=== PATIENT | male | born 1945 | race Caucasian/White ===

== ENCOUNTER → 2018-10-19 | Outpatient (CLI) | payer MEDICARE ==
[~2018-10-19] MED LIST: AMLO1CAP2 PO; ASPI-1181 PO; ATOR40TA69 PO; FOLI1TAB15 PO; IOHEXOL 350 MG/ML 100ML INFUS..BTL IV ONE; OXYB10TA PO; TAMS0.4C32 PO; TICA90TA PO
== END | disposition home or self-care (01) ==
LOC: RAH 13:36
PROVIDERS: ATTEND Internal Medicine Cardiovascular Disease
DX: I71.2 Thoracic aortic aneurysm, without rupture (principal); J44.9 Chronic obstructive pulmonary disease, unspecified; M47.815 Spondylosis without myelopathy or radiculopathy, thoracolumbar region
CPT/HCPCS: 71260; Q9967

== ENCOUNTER → 2018-11-05 | Outpatient (CLI) | payer MEDICARE ==
[~2018-11-05] MED LIST changes: -IOHEXOL 350 MG/ML 100ML INFUS..BTL IV ONE
== END | disposition home or self-care (01) ==
LOC: SHCH 11:03
PROVIDERS: ATTEND Internal Medicine Cardiovascular Disease
DX: I25.2 Old myocardial infarction (principal)
CPT/HCPCS: 93306

== ENCOUNTER → 2019-10-21 | Outpatient (CLI) | payer MEDICARE ==
[~2019-10-21] MED LIST changes: -OXYB10TA PO; +OXYB10TA30 PO
== END | disposition home or self-care (01) ==
LOC: RAH 08:46
PROVIDERS: ATTEND Urology
DX: K57.30 Diverticulosis of large intestine without perforation or abscess without bleeding (principal); N40.0 Benign prostatic hyperplasia without lower urinary tract symptoms
CPT/HCPCS: 74176

== ENCOUNTER → 2019-12-06 | Outpatient (CLI) | payer MEDICARE ==
[~2019-12-06] MED LIST changes: +IOHEXOL-350 75 ML VIAL IV ONE
== END | disposition home or self-care (01) ==
LOC: RAH 12:35
PROVIDERS: ATTEND Internal Medicine Cardiovascular Disease
DX: I71.2 Thoracic aortic aneurysm, without rupture (principal); I51.7 Cardiomegaly
CPT/HCPCS: 71260; Q9967

== ENCOUNTER → 2021-03-08 | Outpatient (CLI) | payer MEDICARE ==
[~2021-03-08] MED LIST changes: -ASPI-1181 PO; +ASPI-1443 PO; -IOHEXOL-350 75 ML VIAL IV ONE
== END | disposition home or self-care (01) ==
LOC: SHCH 08:12
PROVIDERS: ATTEND Internal Medicine Cardiovascular Disease
DX: I51.7 Cardiomegaly (principal); I71.2 Thoracic aortic aneurysm, without rupture; E78.5 Hyperlipidemia, unspecified; R55 Syncope and collapse
CPT/HCPCS: 93306; 93356

== ENCOUNTER → 2022-10-14 | Outpatient (CLI) | payer MEDICARE ==
[2022-10-14 16:44] LABS: ALBUMIN 4.4 g/dL (3.5-5.0); CREATININE 1.1 mg/dL (0.5-1.5); POTASSIUM 4.2 mmol/L (3.5-5.1); TOTAL PROTEIN, SERUM 7.7 g/dL (6.0-8.3)
== END | disposition home or self-care (01) ==
LOC: LAB 10:18
PROVIDERS: ATTEND Internal Medicine Cardiovascular Disease
DX: I71.20 Thoracic aortic aneurysm, without rupture, unspecified (principal)
CPT/HCPCS: 36415; 80053

== ENCOUNTER → 2022-10-25 | Outpatient (CLI) | payer MEDICARE | END | disposition home or self-care (01) | LOC: RAH 09:41 | PROVIDERS: ATTEND Internal Medicine Cardiovascular Disease | DX: I71.20 Thoracic aortic aneurysm, without rupture, unspecified (principal); I71.21 Aneurysm of the ascending aorta, without rupture; J84.10 Pulmonary fibrosis, unspecified; M47.815 Spondylosis without myelopathy or radiculopathy, thoracolumbar region | CPT/HCPCS: 71275 ==

== ENCOUNTER → 2024-08-02 | Outpatient (CLI) | payer MEDICARE ==
[2024-08-02 12:24] LABS: BASOPHILS # (AUTO) 0.06 K/uL (0.00-0.20); BASOPHILS % (AUTO) 1.1 % (0.0-5.0); EOSINOPHILS # (AUTO) 0.25 K/uL (0.00-0.70); EOSINOPHILS % (AUTO) 4.6 % (0.0-8.0); HEMATOCRIT 37.3 % (42-54); IMMATURE GRANULOCYTE ABSOLUTE 0.01 K/uL (0-1); LYMPHOCYTES # (AUTO) 1.6 K/uL (1.0-4.8); LYMPHOCYTES % (AUTO) 28.7 % (21.0-51.0); MEAN CORPUSCULAR HEMOGLOBIN 30.8 pg (27.0-33.0); MEAN CORPUSCULAR HGB CONC 32.2 g/dL (32.0-36.0); MEAN CORPUSCULAR VOLUME 95.6 fL (79-99); MONOCYTES # (AUTO) 0.5 K/uL (0.1-1.0); MONOCYTES % (AUTO) 9.8 % (3.0-13.0); NEUTROPHILS % (AUTO) 55.6 % (40.0-77.0); PLATELET COUNT (AUTO) 204 K/uL (130-400); RED CELL DISTRIBUTION WIDTH 13.5 % (11.0-15.5); WHITE BLOOD COUNT (AUTO) 5.4 K/uL (4.8-10.8)
[2024-08-02 12:40] LABS: ALBUMIN 3.6 g/dL (3.5-5.0); BILIRUBIN,TOTAL 0.5 mg/dL (0.2-1.0); CREATININE 1.6 mg/dL (0.5-1.3); POTASSIUM 4.4 mmol/L (3.5-5.1); TOTAL PROTEIN, SERUM 7.1 g/dL (6.0-8.3)
== END | disposition home or self-care (01) ==
LOC: LAB 09:44
PROVIDERS: ATTEND Internal Medicine Cardiovascular Disease
DX: I10 Essential (primary) hypertension (principal); I25.2 Old myocardial infarction
CPT/HCPCS: 36415; 80053; 80061; 85025

== ENCOUNTER → 2025-01-07 | Outpatient (CLI) | payer MEDICARE ==
--- NOTE | 2025-01-07 14:30 | HMCIMG ---
US ARTERIAL UNILA LOW EXT DUPL HISTORY: Unilateral primary osteoarthritis COMPARISON: None TECHNIQUE: Left lower extremity arterial Doppler ultrasound study was performed. FINDINGS: Normal triphasic and biphasic arterial waveforms are noted in the left common femoral, deep femoral, superficial femoral, popliteal, posterior tibial and dorsalis pedal arteries. On the left, the peak systolic velocity of the common femoral artery is 74 cm/s, the proximal femoral artery is 68 cm/s, the mid femoral artery is 66 cm/s, the distal femoral artery is 58 cm/s, the proximal popliteal artery is 35 cm/s, the distal popliteal artery is 37 cm/s, the anterior tibial artery is 73 cm/s, the posterior tibial artery artery is 76 cm/s,and the dorsalis pedal artery is 64 cm/s. Lateral vessels are seen in the left posterior tibial artery. Incidental note is made of Amador's cyst measuring 5.2 x 0.9 x 4.4 cm. IMPRESSION: 1. Atherosclerotic disease. 2. Otherwise normal triphasic and biphasic arterial waveforms noted of the left lower extremity artery system. There is collateral flow in the left posterior tibial artery.
== END | disposition home or self-care (01) ==
LOC: RAH 13:31
PROVIDERS: ATTEND Orthopaedic Surgery
DX: M17.12 Unilateral primary osteoarthritis, left knee (principal); M25.562 Pain in left knee; G89.29 Other chronic pain; I70.90 Unspecified atherosclerosis
CPT/HCPCS: 93926

== ENCOUNTER → 2025-01-20 | Outpatient (CLI) | payer MEDICARE ==
[2025-01-20 10:32] LABS: IMMATURE GRANULOCYTE ABSOLUTE 0.02 K/uL (0-1); NUCLEATED RED BLOOD CELLS 0.0 % (0.0-0.19); PLATELET COUNT (AUTO) 192 K/uL (130-400); RED BLOOD CELL COUNT(AUTO) 4.07 MIL/uL (4.50-6.20); RED CELL DISTRIBUTION WIDTH 13.2 % (11.0-15.5); WHITE BLOOD COUNT (AUTO) 6.3 K/uL (4.8-10.8)
[2025-01-20 10:45] LABS: ASPARTATE AMINOTRANSFERASE 24.0 U/L (10-37); CREATININE 0.9 mg/dL (0.5-1.3); GLOMERULAR FILTR. RATE CALC 87.0 mL/min (>90); GLUCOSE,RANDOM 92.0 mg/dL (70-105); LDL DIRECT 48.0 mg/dL (0-99); SODIUM SERUM 134.0 mmol/L (136-145); TOTAL PROTEIN, SERUM 8.0 g/dL (6.0-8.3); UREA NITROGEN, BLOOD 13.0 mg/dL (7-18)
== END | disposition home or self-care (01) ==
LOC: LAB 09:36
PROVIDERS: ATTEND Internal Medicine Cardiovascular Disease
DX: I25.10 Atherosclerotic heart disease of native coronary artery without angina pectoris (principal); I25.2 Old myocardial infarction; E78.5 Hyperlipidemia, unspecified; I71.20 Thoracic aortic aneurysm, without rupture, unspecified
CPT/HCPCS: 36415; 80053; 80061; 85025

== ENCOUNTER → 2025-01-24 | Outpatient (CLI) | payer MEDICARE ==
[~2025-01-24] MED LIST changes: +IOHEXOL 350 MG/ML 100ML INFUS..BTL IV ONE
--- NOTE | 2025-01-25 05:41 | HMCIMG ---
EXAM: CTA Chest with Intravenous Contrast. CLINICAL HISTORY: THORACIC AORTIC ANEURYSM, WITHOUT RUPTURE, UNSPECIFIED. TECHNIQUE: Axial CTA images of the chest with intravenous contrast using a pulmonary embolism protocol. Multiplanar reconstructed images were created and reviewed. COMPARISON: CT thorax angiography dated 10/25/2022. FINDINGS: The dimensions of the intrathoracic aorta at various levels are as follows: Annulus: 3.5 cm Sinus Of Valsalva: 4.3 cm Sinotubular junction: 3.5 cm Ascending aorta: 4.8 cm Aortic arch: 3.6 cm Descending thoracic aorta: 2.7 cm No evidence of central or segmental pulmonary embolism is seen. No aneurysm or dissection. No significant axillary, supraclavicular, or mediastinal lymphadenopathy. 1.3 cm hypodense left thyroid nodule. 0.6 cm perifissural nodule along the right horizontal fissure (series 4, image 54). 1.5 cm perifissural nodule along the right major fissure (image 56). 0.3 cm perifissural nodule along the left major fissure (image 47). 0.5 cm solid subpleural lung nodule in the lateral basal segment of the left lower lobe (series 4, image 75). 0.2 cm subpleural left lower lobe nodule (image 81). 1.1 x 1 cm lung cyst in the medial segment of the right middle lobe (series 4, image 78). No evidence of pneumothorax. No pleural effusion. No significant pericardial effusion. No pleural effusions. No pericardial effusion. The cardiac chambers and intrathoracic vessels are well opacified. The heart size is within normal limits. Moderate to severe calcification of the coronary arteries. Mild to moderate calcific plaques in the intrathoracic aorta, including the aortic root. Limited views of the upper abdomen demonstrate a small hiatus hernia. No suspicious osseous abnormality. Moderate degenerative osseous changes. IMPRESSION: Aneurysmal dilatation of the aortic root and ascending aorta. No rupture, thrombosis or dissection. Multiple juxtapleural bilateral lung nodules, likely benign. Small hiatus hernia. Moderate to severe coronary artery calcification. Mild to moderate intrathoracic calcific plaques. 1.3 cm hypodense left thyroid nodule. No significant interval change from the prior CT angiography chest dated 10/25/2022. /[place]acy
== END | disposition home or self-care (01) ==
LOC: RAH 08:32
PROVIDERS: ATTEND Internal Medicine Cardiovascular Disease
DX: I71.21 Aneurysm of the ascending aorta, without rupture (principal); J98.4 Other disorders of lung; R91.8 Other nonspecific abnormal finding of lung field; I25.10 Atherosclerotic heart disease of native coronary artery without angina pectoris; I70.0 Atherosclerosis of aorta; E04.1 Nontoxic single thyroid nodule; M47.814 Spondylosis without myelopathy or radiculopathy, thoracic region; K44.9 Diaphragmatic hernia without obstruction or gangrene
CPT/HCPCS: 71275; Q9967

== ENCOUNTER → 2025-04-01 | Outpatient (CLI) | payer MEDICARE ==
[~2025-04-01] MED LIST changes: -IOHEXOL 350 MG/ML 100ML INFUS..BTL IV ONE
--- NOTE | 2025-04-01 12:55 | HMCIMG ---
CHEST 2VWS REASON: HYPERTENSIVE HEART DISEASE W/O HEART FAILURE COMPARISON: None FINDINGS: Two views of the chest were obtained. Lungs are clear. There is hyperaeration of lungs suggesting of chronic obstructive pulmonary disease with flattening of both hemidiaphragms Heart size is normal. There is uncoiling atherosclerotic change of thoracic aorta. There is no pulmonary vascular congestion. Mediastinum and bony thorax appear unremarkable. There is osteopenia of the bony thorax. There is osteoarthritic change of the midthoracic spine. IMPRESSION: Chronic obstructive pulmonary disease No evidence of airspace consolidation or pulmonary venous congestion
== END | disposition home or self-care (01) ==
LOC: RAH 11:10
PROVIDERS: ATTEND Family Medicine
DX: J44.9 Chronic obstructive pulmonary disease, unspecified (principal); I70.0 Atherosclerosis of aorta; M85.88 Other specified disorders of bone density and structure, other site; M47.814 Spondylosis without myelopathy or radiculopathy, thoracic region; I11.9 Hypertensive heart disease without heart failure
CPT/HCPCS: 71046

== ENCOUNTER → 2025-05-17 | Outpatient (CLI) | payer MEDICARE ==
[~2025-05-17] MED LIST changes: +LEVO-70 PO; +TAMS-55 PO
--- NOTE | 2025-05-17 20:46 | HMCIMG ---
EXAM: ABDOMEN RADIOGRAPH, 5 VIEWS (DECUBITUS AND ERECT) Technique: Frontal upright and supine projections of the abdomen with bilateral lateral decubitus views were obtained. Study limited by the inherent lower sensitivity of radiographs for early or subtle bowel obstruction and for intraperitoneal pathology; small volumes of free air and low-grade obstruction may not be detected. Patient motion and bowel gas overlap mildly limit fine detail. Clinical Information: Diarrhea. Findings: Nonobstructive bowel gas pattern without disproportionate small bowel dilatation. No suspicious air???fluid level configuration to suggest mechanical bowel obstruction on the erect and decubitus views. No free intraperitoneal air identified beneath the diaphragms on the upright view. No abnormal radiopaque calcifications are seen projecting over the renal fossae, ureters, or gallbladder fossa. Soft tissue contours of the abdomen are unremarkable on the submitted views. Degenerative changes of the lumbar spine are noted.IMPRESSION: 1. No acute abdominal findings. /[place]
--- NOTE | 2025-05-18 05:23 | HMCIMG ---
EXAM: CR Chest, 3 views. CLINICAL HISTORY: Shortness of breath. COMPARISON: Chest radiograph dated 04/01/2025. FINDINGS: The lungs show no infiltrates or other acute findings. No pleural effusion or pneumothorax. The cardiomediastinal silhouette is within normal limits. No acute osseous abnormality. Degenerative osseous changes. Mild dextroscoliosis of the thoracic spine. IMPRESSION: No acute cardiopulmonary process is evident. Compared to the prior study, there is no significant interval change. /[place]
== END | disposition home or self-care (01) ==
LOC: RAH 16:10
PROVIDERS: ATTEND Family Medicine
DX: R06.02 Shortness of breath (principal); R19.7 Diarrhea, unspecified; M47.816 Spondylosis without myelopathy or radiculopathy, lumbar region; M41.84 Other forms of scoliosis, thoracic region; M47.814 Spondylosis without myelopathy or radiculopathy, thoracic region
CPT/HCPCS: 71046; 74021

== ENCOUNTER 2025-05-18 14:22 | Emergency (ER) | payer MEDICARE ==
[~2025-05-18] VITALS: Ht 177.8 cm; Wt 79.4 kg
[~2025-05-18 14:22] MED LIST changes: -LEVO-70 PO; -TAMS-55 PO
--- NOTE | 2025-05-18 14:40 | ERN ---
ED Note History of Present Illness Stated Complaint: URINARY RETENTION Chief Complaint: Urinary Retention Time Seen by MD: 14:26 Dictation: PATIENT IS A 79-YEAR-OLD MALE HERE WITH HIS WITH COMPLAINTS OF A URINARY RETENTION WITH FIVE SMALL FREQUENT AMOUNTS OF URINE SINCE April AFTER HE HAD A LEFT TOTAL KNEE REPLACEMENT BY DR. PREM HOLLAND IN [facility]. NO FEVER NO CHILLS NO NAUSEA VOMITING. HE STATES HE DOES NOT HAVE ANY UROLOGISTS. STATES HE SAW HIS PRIMARY CARE DOCTOR TODAY WHO ADVISED HIM COME TO THE EMERGENCY ROOM FOR FURTHER EVALUATION AND TREATMENT ON ARRIVAL TO THE EMERGENCY ROOM BED, PATIENT IS NOTED TO BE VERY DISTENDED WITH BLADDER 3-4 FINGERBREADTHS ABOVE SYMPHYSIS PUBIS. GONZALEZ CATHETER WILL BE INSERTED Allergies: Coded Allergies: ondansetron (Unverified Allergy, Intermediate, HIVES, 10/21/16) Home Meds Active Scripts Aspirin (Aspirin EC) 81 Mg Tablet., 81 MG PO DAILY, #60 TAB Prov:DEN MATHIS MD 02/06/18 Ticagrelor (Brilinta) 90 Mg Tablet, 90 MG PO BID, #60 TAB Prov:DEN MATHIS MD 02/06/18 Reported Medications Amlodipine Besylate/Benazepril (Lotrel 10-40 mg Capsule) 1 Each Capsule, 1 EACH PO DAILY, CAP 02/12/17 Folic Acid (Folic Acid) 1 Mg Tablet, 1 MG PO DAILY, TAB 02/11/17 Tamsulosin HCl (Tamsulosin HCl) 0.4 Mg Cap.er.24h, 0.4 MG PO DAILY, CAPSULE. 02/11/17 Oxybutynin Chloride (Oxybutynin Chloride ER) 10 Mg Tab.er.24, 10 MG PO DAILY 10/20/16 Atorvastatin Calcium (LIPITOR) 40 Mg Tablet, 40 MG PO DAILY, TAB 10/20/16 Past Medical History Past Medical History: High Cholesterol, Heart Disease, Hypertension Additional Past Medical Hx: INCONTINENCE Surgical History: Appendectomy, Tonsillectomy Surgical History Other: HEART STENT, LT KNEE SX, LT ARM SX RN Note Reviewed/Agreed w/PFSH: Yes Review of System Dictation CONSTITUTIONAL: NEGATIVE EXCEPT FOR HPI HEAD/FACE: NEGATIVE EXCEPT FOR HPI EENT: NEGATIVE EXCEPT FOR HPI RESPIRATORY: NEGATIVE EXCEPT FOR HPI GASTROINTESTINAL/ABDOMINAL: NEGATIVE EXCEPT FOR HPI GENITOURINARY: NEGATIVE EXCEPT FOR HPI RETENTION WITH A URGENCY AND FREQUENCY SMALL VERY SMALL AMOUNTS OF URINE MUSCULOSKELETAL: NEGATIVE EXCEPT FOR HPI INTEGUMENTARY: NEGATIVE EXCEPT FOR HPI NEUROLOGICAL/PSYCH: NEGATIVE EXCEPT FOR HPI HEMATOLOGIC/LYMPHATIC: NEGATIVE EXCEPT FOR HPI ALL SYSTEMS NEGATIVE, EXCEPT NOTED ABOVE. 13 POINT REVIEW OF SYSTEMS ASSESSED AND ALL NEGATIVE EXCEPT FOR ABOVE. Initial Vital Sign VS Vital Signs Date Time Temp Pulse Resp B/P (MAP) Pulse Ox O2 Delivery O2 Flow Rate FiO2 05/18/25 14:24 97.3 82 18 111/72 99 Room Air 0 05/18/25 14:25 21 Physical Exam Dictation VITAL SIGNS REVIEWED GENERAL APPEARANCE: ALERT, ORIENTED X 3, MODERATE TO SEVERE ACUTE DISTRESS, WELL DEVELOPED, NOURISHED. HEAD AND FACE: NON-TRAUMATIC. EYES: PERRL, PINK CONJUNCTIVAS, EYELID NO TRAUMA, ANTERIOR CHAMBER WITH ARCUS SENILIS. EARS: PINNAS INTACT AND NO SIGNS OF TRAUMA OR ERYTHEMA EAR CANALS CLEAR AND NO DISCHARGE TM NO ERYTHEMA NOSE: NO DISCHARGE, NO BLEEDING. OROPHARYNX: MOUTH NORMAL, TONGUE PINK, PHARYNX CLEAR,NO ERYTHEMA, TONSILS NO EXUDATES, NO ABSCESSES NOTED, MUCOUS MEMBRANE MOIST NECK: SUPPLE, NON-TENDER, NO THYROMEGALY, NO MASSES, NO JVD, NO BRUITS BREAST:DEFERRED CHEST:NO TENDERNESS, NO CREPITUS, NO PARADOXICAL MOVEMENT, NO RETRACTIONS LUNGS:CLEAR, WELL-VENTILATED, SYMMETRIC, NO RALES, NO WHEEZING, NO RHONCHI, NO STRIDOR, GOOD BREATH SOUNDS BILATERALLY HEART: REGULAR RATE, REGULAR RHYTHM, NO MURMUR, NO GALLOPS VASCULAR: NO PERIPHERAL EDEMA, ABDOMEN: SOFT, POSITIVE BOWEL SOUNDS, NONDISTENDED, NO GUARDING, NONTENDER, NO REBOUND, NO MASSES NO HEPATOMEGALY, NO SPLENOMEGALY, NO OLSON'S SIGN, NO HERNIAS. RECTAL: DEFERRED GENITAL: BLADDER DISTENDED 4-5 FINGERBREADTHS ABOVE SYMPHYSIS PUBIS. NEUROLOGICAL: NORMAL SPEECH, MOTOR FUNCTION INTACT, SENSORY FUNCTION INTACT MUSCULOSKELETAL: NECK NONTENDER, FULL RANGE OF MOTION, BACK NONTENDER, FULL RANGE OF MOTION, EXTREMITIES: NONTENDER, FULL RANGE OF MOTION SKIN: COLOR PINK, DRY, NO TURGOR, NO RASH, NO LACERATIONS, NO ABRASIONS, NO C ONTUSIONS. LYMPHATIC: DEFERRED Results (Laboratory/Radiology) Laboratory/Radiology Laboratory Tests Test 05/18/25 15:13 Urine Color LIGHT-YELLOW (YELLOW) Urine Appearance CLEAR (CLEAR) Urine pH 7.5 (5.0-8.0) Urine Specific [place] 1.009 (1.001-1.031) Urine Protein NEGATIVE mg/dL (NEGATIVE) Urine Glucose (UA) NEGATIVE mg/dL (NEGATIVE) Urine Ketones NEGATIVE mg/dL (NEGATIVE) Urine Occult Blood NEGATIVE (NEGATIVE) Urine Nitrate NEGATIVE (NEGATIVE) Urine Bilirubin NEGATIVE mg/dL (NEGATIVE) Urine Urobilinogen 0.2 mg/dL (0.2-1.0) Urine Leukocyte Esterase NEGATIVE Lionel/uL Urine RBC 0-1 /HPF (0-1) Urine WBC 2-5 /HPF (0-1) H Urine Bacteria RARE /HPF (None Seen) Labs Reviewed?: Yes ED Course ED Course Orders Procedure Category Date Status Time Nurse Driven Gonzalez KASIE 05/18/25 In Process Removal Pro 14:37 Urinalysis Profile LAB 05/18/25 Complete Catherized 14:37 Tamsulosin Hcl PHA 05/18/25 Complete (Flomax) 15:00 Levofloxacin 500mg PHA 05/18/25 Complete Tab (Levaquin 500mg T 15:42 Current Medications Medications (Trade) Dose Ordered Sig/Leatha Route PRN Reason Start Time Stop Time Status Last Admin Dose Admin Levofloxacin (LEvaquIN 500MG TAB) 500 mg ONCE STAT PO 05/18/25 15:42 05/18/25 15:45 DC 05/18/25 16:00 Tamsulosin HCl (FloMAX) 0.4 mg ONCE ONCE PO 05/18/25 15:00 05/18/25 15:01 DC 05/18/25 15:23 Vital Signs Date Time Temp Pulse Resp B/P (MAP) Pulse Ox O2 Delivery O2 Flow Rate FiO2 05/18/25 15:35 97.3 72 18 139/82 100 Room Air* 0 21 05/18/25 14:25 97.3 82 18 111/72 99 Room Air* 0 21 05/18/25 14:24 97.3 82 18 111/72 99 Room Air 0 1458/PATIENT'S HAS DEMANDING A CAT SCAN SAYS IT DR. ANTONY MCNULTY HAD WANTED THIS DONE. I ADVISED HIM I WOULD NOT BE DOING A CAT SCAN FOR ACUTE URINARY RETENTION. I WOULD DO A BLADDER SCAN AND WE WILL MAKE THE DETERMINATION. BLADDER SCAN SHOWED PATIENT HAD 948 CC IN HIS BLADDER. PATIENT'S SPOKE TO DR. MCNULTY AND SHE AGREED WITH PLAN TO DECOMPRESSED BLADDER WITH GONZALEZ CATHETER. I ADVISED PATIENT AND FAMILY WITH CAT SCAN WAS NOT INDICATED AT THIS TIME. 1628/BLADDER NO LONGER PALPABLE. PATIENT HAD GREATER THAN 1100 CC OF URINE OUT. HE WILL BE STARTED ON FLOMAX AND LEVAQUIN DISCHARGED HOME TO FOLLOW UP WITH UROLOGIST, HE REQUEST A SEE . Medical Decision Making MDM MEDICAL DECISION-MAKING BASED ON PHYSICAL EXAMINATION BLADDER SCAN. BLADDER SCAN DEMONSTRATED 948 CC GONZALEZ CATHETER WAS PLACED ASEPTICALLY BY RN GREATER THAN 1100 CC OF CLEAR BROCK URINE OUT. PATIENT GIVEN FLOMAX AND LEVAQUIN DISCHARGED HOME TO FOLLOW UP WITH THE UROLOGY DX & DISP Disposition: Discharge Departure Impression: Primary Impression: Benign prostatic hyperplasia with urinary retention Condition: Stable Scripts Levofloxacin (Levofloxacin) 500 Mg Tablet 1 TAB PO DAILY for 10 Days, #10 TAB 0 Refills Prov: TEMITOPE DUFFY 05/18/25 Tamsulosin HCl (Flomax) 0.4 Mg Cap.er.24h 0.4 MG PO DAILY, #30 CAPSULE.DR 0 Refills Prov: TEMITOPE DUFFY 05/18/25 Additional Instructions: FOLLOW-UP WITH PRIMARY CARE PROVIDER IN 1 TO 2 DAYS. TAKE MEDICATIONS DIRECTED HERE IN THE EMERGENCY ROOM. OKAY TO CONTINUE HOME MEDICATIONS UNLESS OTHERWISE DISCUSSED DURING YOUR VISIT IN THE EMERGENCY ROOM TODAY. RETURN TO YOUR NEAREST EMERGENCY ROOM IF SYMPTOMS WORSEN OR IF THERE IS NO IMPROVEMENT. CALL 911 IF YOU NEED IMMEDIATE ASSISTANCE. TAKE TYLENOL OR MOTRIN [id number] NEEDED AND IF NO CONTRAINDICATIONS ARE PRESENT. INCREASE ORAL HYDRATION. A WOUND CULTURE OR URINE CULTURE WAS ORDERED HERE IN THE EMERGENCY ROOM DEPARTMENT PLEASE FOLLOW-UP WITH PRIMARY CARE PROVIDER AND ADVISE THEM TO GET REPEAT PORTS FROM OUR FACILITY. IF YOU HAD ANY CHRIS WRAP/SPLINTS THAT WERE APPLIED HERE, PLEASE DO NOT REMOVE THEM UNTIL YOU SEE YOUR PRIMARY CARE OR SPECIALTY. TAKE FLOMAX AND LEVAQUIN DIRECTED. INCREASE YOUR WATER INTAKE. CALL UROLOGIST FOR AN APPOINTMENT IN THE NEXT 1-2 DAYS. Referrals: ANTONY MCNULTY MD (PCP) ALKA GUTIERREZ MD Time of Disposition: 16:06 I have reviewed the case, and I agree with, Diagnosis and Plan TEMITOPE DUFFY May 18, 2025 14:40
[2025-05-18 15:23] LABS: ADD UA MICROSCOPIC YES; APPEARANCE,URINE CLEAR (CLEAR); GLUCOSE, URINE (UA) NEGATIVE (NEGATIVE); LEUKOCYTE ESTERASE ,URINE NEGATIVE Leu/uL (NEGATIVE); NITRATE,URINE NEGATIVE (NEGATIVE); OCCULT BLOOD,URINE NEGATIVE (NEGATIVE)
[2025-05-18] MEDS ORDERED: LEVO-70 PO (16:09)
[2025-05-18] MEDS ORDERED: TAMS-55 PO (16:09)
[2025-05-18 17:05] VITALS: BP 134/86; PULSE 82; RESP 14; TEMP 97.3; O2SAT 100
== END 2025-05-18 17:15 | disposition home or self-care (01) ==
LOC: EDH 14:22
DX: N40.1 Benign prostatic hyperplasia with lower urinary tract symptoms (principal); R33.8 Other retention of urine; E78.00 Pure hypercholesterolemia, unspecified; I11.9 Hypertensive heart disease without heart failure; Z88.8 Allergy status to other drugs, medicaments and biological substances; Z79.82 Long term (current) use of aspirin; Z79.899 Other long term (current) drug therapy; Z90.49 Acquired absence of other specified parts of digestive tract; Z90.89 Acquired absence of other organs; Z95.5 Presence of coronary angioplasty implant and graft
CPT/HCPCS: 32551; 51702; 81001; 99284